=== PATIENT | female | born 1970 | race Caucasian/White ===

== ENCOUNTER → 2016-11-14 | Outpatient (CLI) | payer OTHER ==
--- NOTE | 2016-11-14 16:47 | KCIC ---
Bilateral digital screening mammograms: Reason for examination: Routine screening. Comparison is made to previous studies dated 07/15/2013 and 11/24/2012. The skin and nipples show no abnormalities. No abnormal axillary lymph nodes are seen. The breast parenchyma shows scattered fibroglandular density. (Breast density: Category B.) There continues to be some asymmetric parenchyma in the upper outer quadrant of the left breast which is unchanged. There are no new dominant masses, suspicious calcifications or architectural distortions. Impression: No evidence of malignancy. Recommend routine screening. BI-RADS Category 2: Benign. "Our facility is accredited by the [employer] Mammography Program." This patient's information has been entered into a reminder system for the patient to be notified with the results of her examination and a target date for the next mammogram. Electronically signed by: Chyna Veliz MD (11/14/2016 4:44 PM) [id number]
== END | disposition home or self-care (01) ==
LOC: KCIC MAMMO 15:30
PROVIDERS: ATTEND Obstetrics & Gynecology
DX: Z12.31 Encounter for screening mammogram for malignant neoplasm of breast (principal)
CPT/HCPCS: G0202; 77067

== ENCOUNTER → 2017-03-12 | Outpatient (CLI) | payer OTHER ==
[~2017-03-12] MED LIST: HYDR12.53 PO
[2017-03-12 13:57] LABS: BASO % 1 % (0-3); EOS % 1 % (0-3); HEMATOCRIT 38.7 % (36.0-47.0); HEMOGLOBIN 13.2 g/dL (12.0-15.5); LYMPH # 2.7 x10^3/uL (1.0-4.8); LYMPH % 40 % (24-48); MEAN CORPUSCULAR HEMOGLOBIN 31 pg (25-35); MEAN CORPUSCULAR HGB CONC 34 g/dL (31-37); MEAN CORPUSCULAR VOLUME 91 fL (79-100); MONO % 7 % (0-9); NEUT % 50 % (31-73); PLATELET COUNT 353 x10^3/uL (140-400); RED BLOOD COUNT 4.26 x10^6/uL (3.50-5.40); RED CELL DISTRIBUTION WIDTH 12.9 % (11.5-14.5); WHITE BLOOD COUNT 6.6 x10^3/uL (4.0-11.0)
[2017-03-12 14:21] LABS: ALBUMIN 3.7 g/dL (3.4-5.0); ALBUMIN/GLOBULIN RATIO 0.9 (1.0-1.7); CALCIUM 9.2 mg/dL (8.5-10.1); CREATININE 0.8 mg/dL (0.6-1.0); GFR 76.9; POTASSIUM 3.5 mmol/L (3.5-5.1); TOTAL BILIRUBIN 0.2 mg/dL (0.2-1.0); TOTAL PROTEIN 7.7 g/dL (6.4-8.2)
--- NOTE | 2017-03-12 15:14 | RAD ---
2 views of the Chest 03/12/2017 3:21 PM Indication: Preoperative FOR HYSTERECTOMY Comparison: None Findings: There is no focal consolidation or infiltrate identified. There is no effusion or pneumothorax. The cardiomediastinal silhouette and pulmonary vasculature are within normal limits. No osseous abnormality is identified. Impression: No evidence of acute cardiopulmonary process.
== END | disposition home or self-care (01) ==
LOC: SURGPAT 13:15
PROVIDERS: ATTEND Obstetrics & Gynecology
DX: Z01.818 Encounter for other preprocedural examination (principal); Z90.722 Acquired absence of ovaries, bilateral; Z87.891 Personal history of nicotine dependence
CPT/HCPCS: 36415; 71020; 80053; 85025

== ENCOUNTER 2017-03-20 07:56 | Observation (INO) | payer OTHER ==
[~2017-03-20] VITALS: Ht 170.2 cm; Wt 90.7 kg
[2017-03-20] VITALS (9 sets, daily range): BP systolic 134–168; BP diastolic 70–95
[~2017-03-20 07:56] MED LIST changes: +HYDROmorphone 2 MG/ML VIAL IV PRN; +IV RINGERS,LACTATED 1000ML 1,000 ML IV SCH; +LIDOCAINE 1% PF 2 ML VIAL. ID PRN; +MORPHINE SULFATE 2 MG/ML DISP.SYRIN. IV PRN; +ONDANSETRON PF 4 MG/2 ML VIAL. IV PRN; +PROCHLORPERAZINE 10 MG/2 ML VIAL. IV PRN; +fentaNYL PF VIAL 100 MCG/2 ML VIAL IV PRN
[2017-03-20 08:45] LABS: NEG OBC UR NEG; POS OBC UR POS
[2017-03-20] MEDS ORDERED: FAMOTIDINE 20 MG/2 ML VIAL ONE (08:51)
[2017-03-20] MEDS ORDERED: PROPOFOL 20 ML IV ONE (08:51)
[2017-03-20] MEDS ORDERED: LIDOCAINE 2% PF Vial for OR 5 ML VIAL. ONE (08:51)
[2017-03-20] MEDS ORDERED: fentaNYL PF VIAL 100 MCG/2 ML VIAL ONE ×3 (08:51→11:01)
[2017-03-20] MEDS ORDERED: DEXAMETHASONE SOD PHOS 20 MG/5 ML VIAL. ONE (08:51)
[2017-03-20] MEDS ORDERED: MIDAZOLAM HCL/PF 2 MG/2 ML VIAL. ONE (08:51)
[2017-03-20] MEDS ORDERED: ROCURONIUM 50 MG/5 ML VIAL. ONE (08:51)
[2017-03-20] MEDS ORDERED: ONDANSETRON PF 4 MG/2 ML VIAL. ONE (08:51)
[2017-03-20] MEDS ORDERED: 0.9 % SODIUM CHLORIDE 50 ML VIAL. IJ ONE (10:11)
[2017-03-20] MEDS ORDERED: BUPIVACAINE-EPI 0.25%-1:200000 50 ML VIAL. ONE (10:11)
[2017-03-20] MEDS ORDERED: GLYCOPYRROLATE 1 MG/5 ML VIAL. ONE (11:55)
[2017-03-20] MEDS ORDERED: SEVOFLURANE 61 TO 120 MINUTES. IH ONE (12:00)
[2017-03-20] MEDS ORDERED: KETOROLAC 30 MG/ML INJ FOR OR. INJ ONE (12:00)
--- NOTE | 2017-03-20 12:22 | PDOC ---
BRIEF OPERATIVE NOTE Date: Mar 20, 2017 Pre-Op Diagnosis cystocele, uterine prolapse, GSUI Post-Op Diagnosis same Procedure Performed lavh, bso, anterior repair, TVT abbremervat, cystoscopy Surgeon Rafita Curing Supervisor Irineo Anesthesiologist leo Anesthesia Type: General Blood Loss 50cc Urine Output 150cc Specimens Obtained uterus, tubes, ovaries Findings see dictation Complications none MICHAEL OSBORNE MD Mar 20, 2017 12:22
--- NOTE | 2017-03-20 12:23 | DISCH ---
DISCHARGE INSTRUCTIONS Condition on Discharge Condition on Discharge: Stable Activity After Discharge Activity Instructions for Disc: Activity as tolerated, Avoid exertion, Progressive ambulation Lifting Instructions after Dis: No heavy lifting, No pulling or pushing, Do not lift >10 pounds Exercise Instruction after Dis: Progress as tolerated Driving Instructions after Dis: No driving for 2 weeks Weight Bearing Status after Di: Full weight bearing, As tolerated Diet after Discharge Diet after Discharge: Regular Wound Incision Care Wound/Incision Care: Ice to area for comfort, May get incision wet Contacting the DRBenson after DC Call your doctor for: If your condition worsens Follow-Up Follow up with: Dr. Osborne in 1 week MICHAEL OSBORNE MD Mar 20, 2017 12:23
[2017-03-20] MEDS ORDERED: MAG HYDROX/ALUMINUM HYD/SIMETH 30 ML ORAL.SUSP PO PRN (12:30)
[2017-03-20] MEDS ORDERED: METOCLOPRAMIDE HCL 10 MG/2 ML VIAL. IV PRN (12:30)
[2017-03-20] MEDS ORDERED: SIMETHICONE 80 MG TAB.CHEW PO PRN (12:30)
[2017-03-20] MEDS ORDERED: ZOLPIDEM 5 MG TABLET. PO PRN (12:30)
[2017-03-20] MEDS ORDERED: HYDROmorphone 2 MG/ML VIAL IV PRN (12:30)
[2017-03-20] MEDS ORDERED: diphenhydrAMINE HCL 25 MG CAPSULE PO PRN (12:30)
[2017-03-20] MEDS ORDERED: ESTRADIOL WEEKLY 0.1 MG PATCH. TD ONE (12:30)
[2017-03-20] MEDS ORDERED: diphenhydrAMINE 50 MG/ML VIAL IV PRN (12:30)
[2017-03-20] MEDS ORDERED: HYDROcodone/APAP 5/325MG 1 TAB TABLET PO PRN (12:30)
[2017-03-20] MEDS ORDERED: BISACODYL 10 MG SUPP.RECT. PR PRN (12:30)
[2017-03-20] MEDS ORDERED: 0.9 % SODIUM CHLORIDE 10 ML DISP.SYRIN. IV PRN (12:30)
[2017-03-20] MEDS ORDERED: IBUPROFEN 600 MG TABLET. PO PRN (12:30)
[2017-03-20] MEDS ORDERED: LACTULOSE 20 GM/30 ML SOLUTION. PO PRN (12:30)
[2017-03-20] MEDS ORDERED: KETOROLAC 30 MG/ML INJ. IV PRN (12:30)
[2017-03-20] MEDS ORDERED: ONDANSETRON PF 4 MG/2 ML VIAL. IV PRN (12:30)
[2017-03-20] MEDS ORDERED: HYDROmorphone 2 MG/ML VIAL IM PRN (12:30)
[2017-03-20] MEDS ORDERED: oxyCODONE/APAP 5/325 1 TAB TABLET PO PRN (12:30)
[2017-03-20] MEDS ORDERED: CALCIUM CARBONATE 500 MG TAB.CHEW PO PRN (12:30)
[2017-03-20] MEDS ORDERED: NALOXONE 0.4 MG/ML VIAL. IV PRN (12:30)
--- NOTE | 2017-03-20 15:12 | OP ---
DATE OF SURGERY: 03/20/2017 PREOPERATIVE DIAGNOSES: Cystocele, uterine prolapse and genuine stress urinary incontinence. POSTOPERATIVE DIAGNOSES: Cystocele, uterine prolapse and genuine stress urinary incontinence. PROCEDURES: LAVH-BSO, anterior repair, TVT Abbrevo with cystoscopy. SURGEONS: Tena Osborne MD and Irineo. ANESTHESIA: General. COMPLICATIONS: None. ESTIMATED BLOOD LOSS: 50 mL. URINE OUTPUT: 150 mL of clear urine. INTRAVENOUS FLUIDS: Please see anesthesia summary. COMPLICATIONS: None. DESCRIPTION OF PROCEDURE: After informed consent was obtained, the patient was taken to the operating room and given a smooth induction of anesthesia without complications. Her abdomen, perineum, and vagina were prepped and draped in usual sterile fashion. She received 2 grams of Ancef prior to the beginning of the surgery. Her legs were placed in Pipo stirrups. A Norman catheter was previously placed. A speculum was placed in the vagina and the anterior lip of the cervix was grasped with a single tooth tenaculum. The Valtchev was placed through the cervical os and attached to the tenaculum. The speculum was then removed. We then went back above to place the trocar. I changed my gloves at this point. A 5 mm incision was made at the umbilicus. A bladeless trocar was placed down through this incision. The camera confirmed good trocar placement. The patient was then placed in Trendelenburg. Her uterus was noted to be small and ovaries were noted to be somewhat small as well. Two lateral ports were placed. These were also 5 mm ports. These were placed under direct visualization as well. We then used the new LigaSure to cauterize across the round ligament on both sides. This ligament was transected and a bladder flap was created anteriorly using the hook, new LigaSure. The same procedure was carried out on the opposite side. We then elevated the tube and ovary on the right to visualize the ureter. We then cauterized across the IP ligament to free the ovary from the sidewall. We were quite a distance away from the ureter while we did this. The same procedure was carried out on the left hand side. Once the ovaries were free, we began to cauterize down the sides of the uterus to get the branches of the uterine arteries. Once we got down to the uterosacral ligaments, we stopped. The instruments from above were removed. We then went down below. Legs were placed in a high lithotomy and a speculum was replaced back to the vagina. The tenaculum and uterine manipulator were replaced by 2 Keyur thyroid clamps. A circumferential incision was made around the cervix. The bladder was then retracted superiorly using blunt dissection with a Ray-Allison. We then entered the posterior peritoneum using sharp dissection. The peritoneum was tagged to the posterior vaginal wall and saved for later use. We then proceeded to clamp, cut and ligate what was left of the uterosacral cardinal complex, one bite was all it required on the right side. These were tied off in a Paige transfixion suture and tagged to the lateral vaginal sidewall for later use. On the left side, we actually did it in 2 bites. Again, the pedicle was tagged to the lateral vaginal sidewall. The uterus was removed. No bleeding was noted. We closed the peritoneum using a running pursestring suture of 2-0 Vicryl. We then turned our attention to the anterior repair and TVT. Approximately 1 cm from the opening of the urethra, we made an incision in the midline of the vagina. The incision also was 1 cm long. We placed two Allis clamps on either side of the incision. We then used the Metzenbaum scissors to create a tract out towards the obturator foramen. We did not the puncture the obturator membrane with the scissors. We did this on each side. We then placed the wing-guide in this tract and were able to then make our exit points for the TVT. We did this by marking a line, 2 cm superior to the urethra, which was about the level of the clitoris. We made a horizontal line extending out to the patient's thigh. We then made an X to evin the exit point along this line 2 cm from the medial fold to the thigh. This was done on each side. We then took the helical passers and placed them along the wing-guide and then took them out through the previously mentioned marked point on each side. These were then tagged and the passers were removed. The TVT mesh was pulled all the way through the incision, so that only the Prolene sutures were sticking out of the skin incision. We then deflated the Norman and did a cystoscopy. Cystoscopy revealed no entry or injury into the bladder and both ureters were noted to be passing urine. At this point, we terminated the cystoscopy. We replaced the Norman back into the bladder and reinflated it. At this point, we tightened the TVT by using Metzenbaum scissors to support the urethra, so that it would not be too tight. The Prolene sutures were then removed on each side and the little Prolene loop was clipped in the middle of the TVT mesh. The incisions on the skin were closed with Skin Affix without difficulty. The FloSeal was then placed in the vaginal tract for hemostasis, although it really was not bleeding. We then put in two layer closure in the vagina, the first layer was subcuticular and was stitch of 4-0 Monocryl. We then closed the skin with a layer of 3-0 Vicryl. Once this was completed, we then went back to the vaginal cuff and placed two Allis clamps on the edges of the anterior vaginal cuff. We injected the anterior vaginal cuff with a solution of 50 mL of 0.25% Marcaine and 200 mL of injectable saline. We only used about 20 mL of this total because it was a fairly small cystocele. We injected in the midline. We then created an incision along the midline with Metzenbaum scissors lifting the ____ up off of the bladder. The bladder was retracted superiorly. Once we got the bladder retracted off of the anterior vaginal wall, we were able to place several vertical mattress sutures in this area to decrease the defect. We then trimmed the vagina and closed the vaginal defect and the cuff with a running locking stitch of 2-0 Vicryl. Everything was hemostatic at this point. It was a very nice repair and very little bleeding. We then changed gloves and went back above to irrigate the pelvis. The pelvis was irrigated, absolutely no bleeding was noted. We sprayed Tisseel on all the raw surfaces. At this point, we removed the ports from the belly. This was done under direct visualization and no bleeding was noted from the port sites. The gas was allowed to escape and the incisions were closed with an interrupted suture of 4-0 nylon and infiltrated with anesthetic for patient comfort. The patient tolerated the procedure well. There were no complications. The catheter was left in place because of the anterior repair and TVT. TENA OSBORNE MD DR: KODI/jessica JOB#: [id number] / [id number]
[2017-03-21 05:40] VITALS: BP 113/71
[2017-03-21] MEDS ORDERED: hydroCHLOROthiazide 12.5 MG CAPSULE PO SCH (09:00)
--- NOTE | 2017-03-21 09:46 | PDOC ---
SURGICAL PROGRESS NOTE Subjective Doing well. Ambulating well. Has a little soreness only. Tolerating regular diet. Voiding normally Vital Signs Vital Signs Date Time Temp Pulse Resp B/P (MAP) Pulse Ox O2 Delivery O2 Flow Rate FiO2 03/21/17 05:40 98.6 89 16 113/71 (85) 99 Room Air 98.6 03/20/17 12:22 10 I&O Intake and Output 03/21/17 07:00 Intake Total 1960 ml Output Total 1775 ml Balance 185 ml Intake Oral 210 ml IV Total 1750 ml Output Urine Total 1725 ml Estimated Blood Loss 50 ml PATIENT HAS A DENNY: No General: Alert, Oriented X3, Cooperative, No acute distress HEENT: Mucous membr. moist/pink Abdomen: Normal bowel sounds, Soft, No tenderness, No hepatosplenomegaly, No masses, Other (incisions c/d/i) Extremities: No clubbing, No cyanosis, No edema, Normal pulses, No tenderness/ swelling Labs Laboratory Tests Test 03/20/17 08:20 03/20/17 16:29 Urine Test Negative (NEG) Hematocrit 40.5 % (36.0-47.0) Laboratory Tests Test 03/20/17 16:29 Hematocrit 40.5 % (36.0-47.0) I have reviewed the following labs, vitals Problem List pod #1 from [facility], bso and anterior repair with tvt and cystoscopy. Doing well, but patch was not placed yesterday as ordered. Will place today before discharge Assessment/Plan Plan discharge today. F/U next Friday Problems: MICHAEL OSBORNE MD Mar 21, 2017 09:46
--- NOTE | 2017-03-21 09:50 | PDOC3 ---
Discharge Summary Visit Information Date of Admission: Mar 20, 2017 Date of Discharge: Mar 21, 2017 Admitting Diagnosis: pelvic organ prolapse, cystocele, GSUI Final Diagnosis same Brief Hospital Course Allergies Allergies Coded Allergies Type Severity Reaction Last Updated Verified No Known Drug Allergies 03/20/17 No Vital Signs Vital Signs Date Time Temp Pulse Resp B/P (MAP) Pulse Ox O2 Delivery O2 Flow Rate FiO2 03/21/17 05:40 98.6 89 16 113/71 (85) 99 Room Air 98.6 03/20/17 12:22 10 Lab Results Laboratory Tests Test 03/20/17 08:20 03/20/17 16:29 Urine Test Negative (NEG) Hematocrit 40.5 % (36.0-47.0) Laboratory Tests Test 03/20/17 16:29 Hematocrit 40.5 % (36.0-47.0) Brief Hospital Course Ms. Obrien is a 47 old female who presented with symptoms of prolapse and GSUI. She presented yesterday for lavh with bso and anterior repair with tvt abbrevo and cystoscopy. She underwent the planned procedure without difficulty. Today, she is doing well. She has no complaints. Minimal pain. She is ambulating and eating normally. SHe has voided many times and has no problems with this. She is ready for discharge. Discharge Information Condition at Discharge: Improved Follow Up: Weeks (1 week in office) Disposition/Orders: D/C to Home Scheduled Hydrochlorothiazide (Hydrochlorothiazide Capsule ), 1 CAP PO DAILY, (Reported ) Patient Instructions Patient Instructions see list MICHAEL OSBORNE MD Mar 21, 2017 09:50
[2017-03-21 10:38] VITALS: BP 143/78
--- NOTE | 2017-03-24 15:13 | PATHOLOGY ---
PATHOLOGY REPORT * * * * * * * * FINAL DIAGNOSIS: Uterus and attached bilateral fallopian tubes and ovaries, laparoscopic-assisted vaginal hysterectomy and bilateral salpingo-oophorectomy: - Mild chronic cervicitis with focal squamous metaplasia. - Nabothian cysts, cervix, small. - Proliferative endometrium with focal recent stromal hemorrhage. - Adenomyosis, uterine corpus, subbasal, focal. - Leiomyoma, uterine corpus, subserosal. - Status-post bilateral tubal ligation, with congestion of bilateral fallopian tubes. - Left paratubal cyst. - Simple cysts of ovaries. COMMENT: There is no evidence of malignancy. (JPM:mgr; 03/24/2017) REPORT ELECTRONICALLY SIGNED BY: Iglesia Manriquez M.D. DATE/TIME: 03/24/2017 15:12 * * * * * * * * GROSS PATHOLOGY: Received in formalin labeled "Morgan Obrien, uterus with cervix and bilateral fallopian tubes and ovaries" and consists of an 82 g uterus/cervix and bilateral attached adnexa. It measures 7.9 x 5.8 x 3.5 cm. There are serosal nodules present measuring 0.7 cm in greatest dimension. The ectocervix measures 3.0 cm in diameter. The endocervix measures 2.5 cm in length and the endometrial cavity measures 2.7 x 2.1 cm. The endometrium is granular and red-brown with an average thickness of 0.1 cm. The myometrium averages 2.0 cm thick and appears grossly unremarkable. The right lobulated castro ovary measures 2.9 x 1.5 x 1.0 cm. Bulging from one surface is a 1.1 cm in diameter cyst. Sectioning the ovary reveals no gross lesions. The right fallopian tube has been previously ligated with remaining tube measuring 2.5 cm in length by 0.6 cm in diameter. Sectioning reveals no gross lesions. The lobulated left ovary measures 2.3 x 2.0 x 1.8 cm and sectioning reveals an underlying cyst measuring 2.0 cm in diameter. The cyst contains serous straw-colored fluid. The previously ligated remaining left fallopian tube measures 1 cm in length by 0.5 cm in diameter. There is an attached 0.5 cm paratubal cyst. Soda Flaker sections are submitted A1-A6. A1 anterior and posterior cervix A2 anterior endomyometrium A3 posterior endomyometrium A4 serosal nodule A5 right ovary and tube A6 left ovary and tube (SILVIA; 03/21/2017) INITIAL CPT CODE(S): A; 57723 Professional services performed by [facility] at [address] [address] Technical services performed by [facility] at [address] [place] [address], [facility] [address], [place] [address]. SPECIMEN(S) RECEIVED: A.Uterus with cervix and bilateral fallopian tubes and ovaries CLINICAL HISTORY: Prolapse, stress incontinence, cystocele PATIENT: MORGAN OBRIEN /AGE: 1103/16/1970 (Age: 47) PATIENT #: [id number] ALT CASE #: SPECIMEN COLLECTION DATE: 03/20/2017 SPECIMEN RECEIVED DATE: 03/21/2017 [facility] - [address] [place] [address] - PHONE: [phone] * * * END OF REPORT * * *
== END 2017-03-21 13:46 | disposition home or self-care (01) ==
LOC: SURG 07:56 → 3 NORTH 12:23
PROVIDERS: ADMIT Obstetrics & Gynecology; ATTEND Obstetrics & Gynecology
DX: D25.2 Subserosal leiomyoma of uterus (principal); N81.4 Uterovaginal prolapse, unspecified; N81.10 Cystocele, unspecified; N72 Inflammatory disease of cervix uteri; N88.8 Other specified noninflammatory disorders of cervix uteri; N80.0 Endometriosis of uterus; N83.8 Other noninflammatory disorders of ovary, fallopian tube and broad ligament; N83.209 Unspecified ovarian cyst, unspecified side; N39.3 Stress incontinence (female) (male)
CPT/HCPCS: 36415; 57240; 58552; 81025; 85014; 86850; 86900; 86901; C1769; C1771; G0378; G0379; J0690; J1100; J1885; J2250; J2405; J2704; J3010; J3490; J7030; S0028; 88305; J2001